=== PATIENT | female | born 1940 | race Caucasian/White ===

== ENCOUNTER → 2018-08-18 | Outpatient (CLI) | payer OTHER ==
[~2018-08-18] MED LIST: LEVO25TA54 PO; LOSA25TA16 PO; PANT40TA25 PO; PRAV20TA4 PO
== END | disposition home or self-care (01) ==
LOC: RAH 12:05
PROVIDERS: ATTEND Internal Medicine Critical Care Medicine
DX: M47.896 Other spondylosis, lumbar region (principal); M85.88 Other specified disorders of bone density and structure, other site
CPT/HCPCS: 72100

== ENCOUNTER 2018-08-28 16:02 | Observation (INO) | payer OTHER ==
[~2018-08-28] VITALS: Ht 154.9 cm; Wt 59.9 kg
[2018-08-28] MEDS ORDERED: FENTANYL CITRATE PF 50 MCG/1 ML 2ML VIAL ONE ×2 (16:57→19:01)
[2018-08-28 20:21] LABS: BASOPHILS % (AUTO) 0.9 % (0.0-5.0); EOSINOPHILS % (AUTO) 6.5 % (0.0-8.0); HEMATOCRIT 38.1 % (36-48); LYMPHOCYTES % (AUTO) 21.4 % (21.0-51.0); MEAN CORPUSCULAR HEMOGLOBIN 30.8 pg (27.0-33.0); MEAN CORPUSCULAR HGB CONC 33.4 g/dL (32.0-36.0); MEAN CORPUSCULAR VOLUME 92.3 fL (79-99); MONOCYTES % (AUTO) 9.1 % (3.0-13.0); NEUTROPHILS % (AUTO) 62.1 % (40.0-77.0); PLATELET COUNT (AUTO) 288 K/uL (130-400); RED BLOOD CELL COUNT(AUTO) 4.13 MIL/uL (4.00-5.50); RED CELL DISTRIBUTION WIDTH 13.6 % (11.0-15.5); WHITE BLOOD COUNT (AUTO) 6.3 K/uL (4.8-10.8)
[2018-08-28 20:31] LABS: CREATININE 0.8 mg/dL (0.5-1.5); POTASSIUM 3.8 mmol/L (3.5-5.1)
[2018-08-28] MEDS: SODIUM CHLORIDE 0.9% 1000ML 1,000 ML IV SCH (23:22)
[2018-08-28] MEDS ORDERED: ONDANSETRON HCL 4 MG/2 ML VIAL IV PRN (23:30)
[2018-08-28] MEDS ORDERED: LACTULOSE 20 GM/30 ML UDCUP PO PRN (23:30)
[2018-08-28] MEDS ORDERED: ACETAMINOPHEN 325 MG TAB PO PRN (23:30)
[2018-08-29] VITALS (7 sets, daily range): BP systolic 114–136; BP diastolic 59–77
[2018-08-29] MEDS ORDERED: TOPI50TA24 PO (02:07)
[2018-08-29] MEDS ORDERED: ATOR10TA69 PO (02:07)
[2018-08-29] MEDS ORDERED: ALEN70TA47 PO (02:07)
[2018-08-29] MEDS ORDERED: SERT50TA12 PO (02:07)
[2018-08-29] MEDS ORDERED: MELO-106 PO (02:07)
[2018-08-29] MEDS ORDERED: IMIP10TA5 PO (02:07)
[2018-08-29] MEDS: KETOROLAC TROMETHAMINE 15MG/ML IV PRN ×2 (03:21→11:21)
[2018-08-29 04:53] LABS: BASOPHILS % (AUTO) 0.8 % (0.0-5.0); EOSINOPHILS % (AUTO) 8.5 % (0.0-8.0); HEMATOCRIT 37.8 % (36-48); LYMPHOCYTES % (AUTO) 24.7 % (21.0-51.0); MEAN CORPUSCULAR HEMOGLOBIN 31.8 pg (27.0-33.0); MEAN CORPUSCULAR HGB CONC 34.5 g/dL (32.0-36.0); MEAN CORPUSCULAR VOLUME 92.3 fL (79-99); PLATELET COUNT (AUTO) 333 K/uL (130-400); RED CELL DISTRIBUTION WIDTH 13.4 % (11.0-15.5); WHITE BLOOD COUNT (AUTO) 5.4 K/uL (4.8-10.8)
[2018-08-29 05:05] LABS: ALBUMIN 3.3 g/dL (3.5-5.0); BILIRUBIN,TOTAL 0.3 mg/dL (0.2-1.0); CREATININE 0.8 mg/dL (0.5-1.5); POTASSIUM 4.3 mmol/L (3.5-5.1); TOTAL PROTEIN, SERUM 6.2 g/dL (6.0-8.3)
[2018-08-29 08:22] LABS: APPEARANCE,URINE Clear (CLEAR); BILIRUBIN,URINE Negative (NEGATIVE); COLOR,URINE Yellow (YELLOW); GLUCOSE, URINE (UA) Negative (NEGATIVE); KETONES,URINE Negative (NEGATIVE); LEUKOCYTE ESTERASE ,URINE Moderate (NEGATIVE); NITRATE,URINE Negative (NEGATIVE); OCCULT BLOOD,URINE Negative (NEGATIVE); PH,URINE 6.5 (5.0-8.0); PROTEIN,URINE Negative (NEGATIVE)
[2018-08-29 09:03] LABS: BACTERIA,URINE Rare /HPF (None Seen); RBC,URINE 0-1 /HPF (0-1)
[2018-08-29 09:04] LABS: SQUAMOUS EPITHELIAL CELL,UR Few /HPF (0-2)
[2018-08-29] MEDS: LACTULOSE 20 GM/30 ML UDCUP PO SCH ×2 (09:13→23:30)
[2018-08-29] MEDS: PANTOPRAZOLE SODIUM 40 MG TABLET.DR PO SCH (09:13)
[2018-08-29] MEDS: ENOXAPARIN SODIUM 30 MG/0.3 ML SQ SCH (09:15)
[2018-08-29] MEDS: SODIUM CHLORIDE 0.9% 1000ML 1,000 ML IV SCH ×2 (13:57→19:22)
[2018-08-29] MEDS ORDERED: CEFTRIAXONE SODIUM 2 GM VIAL IVP SCH (14:00)
[2018-08-29] MEDS: LEVOFLOXACIN 500 MG TABLET PO SCH (15:23)
[2018-08-29] MEDS: TOPIRAMATE 25 MG TABLET PO SCH (19:41)
[2018-08-29] MEDS ORDERED: AMITRIPTYLINE HCL 10 MG TABLET PO SCH (21:00)
[2018-08-30 03:00] VITALS: BP 115/63
[2018-08-30] MEDS: SODIUM CHLORIDE 0.9% 1000ML 1,000 ML IV SCH ×2 (05:22→11:19)
[2018-08-30 07:00] VITALS: BP 131/69
[2018-08-30] MEDS: LEVOFLOXACIN 500 MG TABLET PO SCH (08:40)
[2018-08-30] MEDS: PANTOPRAZOLE SODIUM 40 MG TABLET.DR PO SCH (08:41)
[2018-08-30] MEDS: ENOXAPARIN SODIUM 30 MG/0.3 ML SQ SCH (08:41)
[2018-08-30] MEDS: TOPIRAMATE 25 MG TABLET PO SCH (08:41)
[2018-08-30] MEDS ORDERED: ATORVASTATIN CALCIUM 10 MG TABLET PO SCH (09:00)
[2018-08-30] MEDS ORDERED: SERTRALINE HCL 50 MG TABLET PO SCH (09:00)
[2018-08-30] MEDS ORDERED: MELOXICAM 7.5 MG TABLET PO SCH (09:00)
[2018-08-30] MEDS: KETOROLAC TROMETHAMINE 15MG/ML IV PRN (11:18)
[2018-08-30 11:21] VITALS: BP 129/75
[2018-08-30] MEDS ORDERED: IBUP-2071 PO (14:20)
[2018-08-30] MEDS ORDERED: PANT40TA PO (14:20)
[2018-08-30] MEDS ORDERED: LEVO500T2 PO (14:20)
[2018-08-30 16:34] VITALS: BP 124/68
[2018-09-05] MEDS ORDERED: ALENDRONATE SODIUM 35 MG TAB PO SCH (09:00)
== END 2018-08-30 18:34 | disposition home or self-care (01) ==
LOC: EDH 16:02 → INTOOBSV 21:56 → EDHIP 21:56 → EEVIPCON 21:56 → 4AH 23:31
PROVIDERS: ADMIT Internal Medicine; ATTEND Internal Medicine
DX: M79.662 Pain in left lower leg (principal); M25.552 Pain in left hip; R07.89 Other chest pain; E03.9 Hypothyroidism, unspecified; E78.5 Hyperlipidemia, unspecified; I10 Essential (primary) hypertension; K21.9 Gastro-esophageal reflux disease without esophagitis; Z82.3 Family history of stroke; Z90.710 Acquired absence of both cervix and uterus; W01.190A Fall on same level from slipping, tripping and stumbling with subsequent striking against furniture, initial encounter; Y93.01 Activity, walking, marching and hiking; Y92.89 Other specified places as the place of occurrence of the external cause; Y99.8 Other external cause status
CPT/HCPCS: 36415 ×2; 71045; 72131; 72192; 73502; 73552; 73562; 80048; 80053; 81001; 85025 ×2; 87088; 93005; 96372 ×2; 96374; 96375; 96376 ×2; 97039; 97116; 97161; 99285; G0378 ×45; G8978; G8979; G8980; G8981; G8982; G8983; J1650 ×2; J1885 ×3; J2405; J3010 ×2

== ENCOUNTER 2019-08-05 12:32 | Inpatient (IN) | payer OTHER ==
[~2019-08-05] VITALS: Ht 157.5 cm; Wt 62.6 kg
[~2019-08-05 12:32] MED LIST changes: +ALEN70TA10 PO; +ATOR10TA69 PO; +IBUP-2071 PO; +IMIP10TA5 PO; -LEVO25TA54 PO; +LEVO500T2 PO; -LOSA25TA16 PO; +MELO-106 PO; +PANT40TA PO; -PANT40TA25 PO; -PRAV20TA4 PO; +SERT50TA12 PO; +TOPI50TA24 PO
[2019-08-05] MEDS ORDERED: ONDANSETRON HCL 4 MG/2 ML VIAL ONE (12:49)
[2019-08-05] MEDS ORDERED: SODIUM CHLORIDE 0.9% 1000ML 1,000 ML IV ONE ×3 (12:50→16:22)
[2019-08-05 13:00] LABS: APPEARANCE,URINE Clear (CLEAR); BILIRUBIN,URINE Negative (NEGATIVE); COLOR,URINE Yellow (YELLOW); GLUCOSE, URINE (UA) Negative (NEGATIVE); KETONES,URINE Negative (NEGATIVE); LEUKOCYTE ESTERASE ,URINE Negative (NEGATIVE); NITRATE,URINE Negative (NEGATIVE); OCCULT BLOOD,URINE Moderate (NEGATIVE); PROTEIN,URINE Negative (NEGATIVE); UROBILINOGEN,URINE 0.2 mg/dL (0.2-1.0)
[2019-08-05 13:00] LABS: BASOPHILS % (AUTO) 0.2 % (0.0-5.0); HEMATOCRIT 38.4 % (36-48); LYMPHOCYTES % (AUTO) 1.7 % (21.0-51.0); MEAN CORPUSCULAR HEMOGLOBIN 32.6 pg (27.0-33.0); MEAN CORPUSCULAR HGB CONC 34.4 g/dL (32.0-36.0); MEAN CORPUSCULAR VOLUME 94.6 fL (79-99); MONOCYTES % (AUTO) 3.5 % (3.0-13.0); NEUTROPHILS % (AUTO) 94.6 % (40.0-77.0); PLATELET COUNT (AUTO) 262 K/uL (130-400); RED BLOOD CELL COUNT(AUTO) 4.06 MIL/uL (4.00-5.50); RED CELL DISTRIBUTION WIDTH 14.4 % (11.0-15.5); WHITE BLOOD COUNT (AUTO) 10.3 K/uL (4.8-10.8)
[2019-08-05 13:11] LABS: INR 0.94 (0.85-1.15); PARTIAL THROMBOPLASTIN TIME 24.6 SEC (26.3-35.5); PROTHROMBIN TIME 9.9 SEC (9.6-11.6)
[2019-08-05 13:11] LABS: BACTERIA,URINE Few /HPF (None Seen); MUCUS,URINE Moderate LPF (None Seen); RBC,URINE 0-1 /HPF (0-1); SQUAMOUS EPITHELIAL CELL,UR 0-2 /HPF (0-2); WBC,URINE 0-1 /HPF (0-1)
[2019-08-05 13:14] LABS: CREATININE 0.8 mg/dL (0.5-1.5); POTASSIUM 3.1 mmol/L (3.5-5.1)
[2019-08-05 13:19] LABS: ALBUMIN 3.3 g/dL (3.5-5.0); BILIRUBIN,TOTAL 0.4 mg/dL (0.2-1.0); TOTAL PROTEIN, SERUM 6.4 g/dL (6.0-8.3)
[2019-08-05] MEDS ORDERED: POTASSIUM CHLORIDE 20 MEQ ERTAB PO ONE (13:44)
[2019-08-05] MEDS ORDERED: ACETAMINOPHEN EXTRA STRENGTH 500 MG TABLET ONE (13:45)
[2019-08-05] MEDS ORDERED: DiphenhydrAMINE HCL 50 MG/ML VIAL ONE (14:46)
[2019-08-05] MEDS ORDERED: KETOROLAC TROMETHAMINE 15MG/ML ONE (14:46)
[2019-08-05] MEDS: SODIUM CHLORIDE 0.9% 1000ML 1,000 ML IV SCH ×2 (15:44→20:10)
[2019-08-05] MEDS: LEVOFLOXACIN 500 MG/D5W 100 ML 100 ML IV SCH (15:45)
[2019-08-05] MEDS ORDERED: ONDANSETRON HCL 4 MG/2 ML VIAL IV PRN (15:45)
[2019-08-05] MEDS: METRONIDAZOLE 500MG/100ML BAG 100 ML IV SCH (15:45)
[2019-08-05] MEDS ORDERED: HYDRALAZINE HCL 20 MG/ML VIAL IV PRN (15:45)
[2019-08-05] MEDS ORDERED: ACETAMINOPHEN 325 MG TAB PO PRN (15:45)
[2019-08-05] MEDS ORDERED: METRONIDAZOLE 500MG/100ML BAG 100 ML ONE (16:21)
[2019-08-05 17:55] VITALS: BP 116/62
--- NOTE | 2019-08-05 17:59 | NUR ---
PT IN BED IN NO DISTRESS AAOX3. LUNGS CLEAR, DENIES NEEDS. 18G TO LT WRIST INTACT. FLUIDS STARTED.
[2019-08-05 19:04] LABS: MAGNESIUM 1.7 mg/dL (1.80-2.40); PHOSPHORUS 2.2 mg/dL (2.5-4.9)
[2019-08-05] MEDS ORDERED: FLU VACC QS2019-20 36MOS UP/PF 60 MCG/0.5 ML ML IM SCH (19:30)
[2019-08-05] MEDS ORDERED: PNEUMOCOCCAL VACCINE POLYVALENT 0.5 ML/VIAL [PPV] IM SCH (19:30)
[2019-08-05 20:00] VITALS: BP 113/57
[2019-08-05] MEDS: FAMOTIDINE/PF 20 MG/2 ML VIAL IV SCH (20:19)
[2019-08-05] MEDS: ACETAMINOPHEN 325 MG TAB PO PRN (20:20)
[2019-08-05] MEDS ORDERED: LIDOCAINE HCL-MPF 1% 2ML VIAL IV PRN (21:30)
[2019-08-05] MEDS ORDERED: POTASSIUM CHLORIDE 20MEQ/100ML 100 ML IV PRN (21:30)
[2019-08-05] MEDS ORDERED: POTASSIUM CHLORIDE 10% ELIXIR 20 MEQ/15 ML UDCUP PO PRN (21:30)
[2019-08-06] VITALS: BP 111/42
[2019-08-06] MEDS: METRONIDAZOLE 500MG/100ML BAG 100 ML IV SCH ×4 (00:33→23:40)
[2019-08-06] MEDS: POTASSIUM CHLORIDE 20 MEQ ERTAB PO PRN ×3 (01:12→06:49)
[2019-08-06 04:00] VITALS: BP 115/62
[2019-08-06] MEDS: SODIUM CHLORIDE 0.9% 1000ML 1,000 ML IV SCH ×3 (04:07→22:01)
[2019-08-06] MEDS ORDERED: MAGNESIUM 2GM PREMIX 50ML 50 ML IV PRN ×2 (05:00→15:30)
[2019-08-06] MEDS: ACETAMINOPHEN 325 MG TAB PO PRN (05:41)
[2019-08-06 06:26] LABS: BASOPHILS % (AUTO) 0.2 % (0.0-5.0); EOSINOPHILS % (AUTO) 1.2 % (0.0-8.0); HEMATOCRIT 32.5 % (36-48); MEAN CORPUSCULAR HEMOGLOBIN 33.2 pg (27.0-33.0); MEAN CORPUSCULAR HGB CONC 34.3 g/dL (32.0-36.0); MEAN CORPUSCULAR VOLUME 96.6 fL (79-99); NEUTROPHILS % (AUTO) 72.6 % (40.0-77.0); PLATELET COUNT (AUTO) 190 K/uL (130-400); RED BLOOD CELL COUNT(AUTO) 3.37 MIL/uL (4.00-5.50); RED CELL DISTRIBUTION WIDTH 14.3 % (11.0-15.5); WHITE BLOOD COUNT (AUTO) 5.7 K/uL (4.8-10.8)
[2019-08-06 06:32] LABS: CREATININE 0.6 mg/dL (0.5-1.5); POTASSIUM 3.5 mmol/L (3.5-5.1)
[2019-08-06 08:00] VITALS: BP 119/55
[2019-08-06] MEDS: FAMOTIDINE/PF 20 MG/2 ML VIAL IV SCH ×2 (08:41→21:10)
[2019-08-06] MEDS: ENOXAPARIN SODIUM 30 MG/0.3 ML SQ SCH (08:42)
[2019-08-06 11:21] VITALS: BP 105/66
--- NOTE | 2019-08-06 11:53 | NUR ---
D/C PLAN CM spoke to pt regarding d/c planning. Pt is ind[place] and lives with spouse. States spouse can assist in care if needed. Denies having any home health or DME. Plan to home. No needs verbalized or identified. CM to f/u. Addendum: 08/06/19 at 1154 by OSMAR FERREIRA CM Amended: Links added.
[2019-08-06] MEDS ORDERED: TOPI50TA24 PO (12:39)
[2019-08-06] MEDS ORDERED: LEVO75 PO (12:39)
--- NOTE | 2019-08-06 13:09 | NUR ---
Nutrition intervention: Nutrition notification for hypovolemia. Pt reports she continues with N/D, no emesis. Pt attempting to eat however states has trouble chewing, requesting mechanical soft foods. Spoke to pt about increased fluids, pt agrees. Recommendations: Modify diet therapy with mechanical soft diet. Offer fluids at all meals. Offer BRAT options to assist reduce diarrhea symptoms. Addendum: 08/06/19 at [address] RD Amended: Links added.
[2019-08-06] MEDS ORDERED: IBUPROFEN 200 MG TAB PO SCH (15:15)
[2019-08-06] MEDS ORDERED: IBUPROFEN 200 MG TAB PO PRN (15:15)
[2019-08-06] MEDS ORDERED: LACTOBACILLUS RHAMNOSUS GG 1 EACH CAP.SPRINK PO SCH (15:15)
[2019-08-06 16:00] VITALS: BP 129/71
[2019-08-06] MEDS: LEVOFLOXACIN 500 MG/D5W 100 ML 100 ML IV SCH (16:51)
[2019-08-06 20:10] VITALS: BP 140/62
[2019-08-06] MEDS: TOPIRAMATE 25 MG TABLET PO SCH (21:10)
[2019-08-06] MEDS: LACTOBACILLUS RHAMNOSUS GG 1 EACH CAP.SPRINK PO SCH (21:10)
[2019-08-07] VITALS (7 sets, daily range): BP systolic 119–139; BP diastolic 54–75
[2019-08-07] MEDS: SODIUM CHLORIDE 0.9% 1000ML 1,000 ML IV SCH ×2 (05:05→17:25)
[2019-08-07 06:43] LABS: BASOPHILS % (AUTO) 0.5 % (0.0-5.0); EOSINOPHILS % (AUTO) 4.5 % (0.0-8.0); HEMATOCRIT 32.7 % (36-48); LYMPHOCYTES % (AUTO) 19.8 % (21.0-51.0); MEAN CORPUSCULAR HEMOGLOBIN 32.7 pg (27.0-33.0); MEAN CORPUSCULAR HGB CONC 34.5 g/dL (32.0-36.0); MEAN CORPUSCULAR VOLUME 94.9 fL (79-99); NEUTROPHILS % (AUTO) 61.2 % (40.0-77.0); PLATELET COUNT (AUTO) 218 K/uL (130-400); RED BLOOD CELL COUNT(AUTO) 3.45 MIL/uL (4.00-5.50); RED CELL DISTRIBUTION WIDTH 14.3 % (11.0-15.5); WHITE BLOOD COUNT (AUTO) 5.4 K/uL (4.8-10.8)
[2019-08-07 06:58] LABS: CREATININE 0.6 mg/dL (0.5-1.5); POTASSIUM 3.9 mmol/L (3.5-5.1)
[2019-08-07] MEDS: LACTOBACILLUS RHAMNOSUS GG 1 EACH CAP.SPRINK PO SCH ×3 (08:25→20:49)
[2019-08-07] MEDS: LEVOTHYROXINE 75 MCG TABLET PO SCH (08:25)
[2019-08-07] MEDS: TOPIRAMATE 25 MG TABLET PO SCH ×2 (08:25→20:48)
[2019-08-07] MEDS: FAMOTIDINE/PF 20 MG/2 ML VIAL IV SCH ×2 (08:26→20:48)
[2019-08-07] MEDS: METRONIDAZOLE 500MG/100ML BAG 100 ML IV SCH ×3 (08:26→23:48)
[2019-08-07] MEDS: ENOXAPARIN SODIUM 30 MG/0.3 ML SQ SCH (08:26)
[2019-08-07] MEDS ORDERED: LOPERAMIDE HCL 2 MG CAP PO SCH (12:00)
--- NOTE | 2019-08-07 12:19 | NUR ---
DR CRUZ CALLED BACK. AWARE OF CONSULT. NEW ORDERS RECEIVED AND CARRIED OUT. ORDERED CT ABD/PELVIS AND CLEAR LIQUID DIET FOR NOW.
[2019-08-07] MEDS ORDERED: DIATR MEGLU/DIATRIZOATE SODIUM 30 ML BOTTLE ONE (14:40)
[2019-08-07] MEDS ORDERED: IOHEXOL-350 75 ML VIAL IV ONE (16:50)
[2019-08-07] MEDS: LEVOFLOXACIN 500 MG/D5W 100 ML 100 ML IV SCH (17:25)
[2019-08-08] MEDS: SODIUM CHLORIDE 0.9% 1000ML 1,000 ML IV SCH ×2 (01:55→18:45)
[2019-08-08 03:30] VITALS: BP 134/70
[2019-08-08 05:00] LABS: BASOPHILS % (AUTO) 0.3 % (0.0-5.0); EOSINOPHILS % (AUTO) 4.2 % (0.0-8.0); HEMATOCRIT 34.3 % (36-48); MEAN CORPUSCULAR HEMOGLOBIN 32.4 pg (27.0-33.0); MEAN CORPUSCULAR HGB CONC 34.1 g/dL (32.0-36.0); MEAN CORPUSCULAR VOLUME 94.9 fL (79-99); MONOCYTES % (AUTO) 13.5 % (3.0-13.0); PLATELET COUNT (AUTO) 230 K/uL (130-400); RED BLOOD CELL COUNT(AUTO) 3.62 MIL/uL (4.00-5.50); RED CELL DISTRIBUTION WIDTH 14.4 % (11.0-15.5); WHITE BLOOD COUNT (AUTO) 5.4 K/uL (4.8-10.8)
[2019-08-08 05:07] LABS: CREATININE 0.6 mg/dL (0.5-1.5); POTASSIUM 3.2 mmol/L (3.5-5.1)
[2019-08-08] MEDS: POTASSIUM CHLORIDE 20 MEQ ERTAB PO PRN ×3 (05:12→13:38)
[2019-08-08] MEDS: LEVOTHYROXINE 75 MCG TABLET PO SCH (06:42)
[2019-08-08] MEDS: METRONIDAZOLE 500MG/100ML BAG 100 ML IV SCH ×3 (06:42→23:10)
[2019-08-08 08:00] VITALS: BP 126/73
[2019-08-08] MEDS: LACTOBACILLUS RHAMNOSUS GG 1 EACH CAP.SPRINK PO SCH ×3 (09:05→22:28)
[2019-08-08] MEDS: FAMOTIDINE/PF 20 MG/2 ML VIAL IV SCH ×2 (09:05→22:29)
[2019-08-08] MEDS: ENOXAPARIN SODIUM 30 MG/0.3 ML SQ SCH (09:05)
[2019-08-08] MEDS: TOPIRAMATE 25 MG TABLET PO SCH ×2 (09:06→22:29)
[2019-08-08 12:00] VITALS: BP 110/60
[2019-08-08] MEDS ORDERED: LOPERAMIDE 1 MG/7.5 ML UDCUP PO SCH (14:30)
[2019-08-08] MEDS ORDERED: NS-20 MEQ KCL 1000ML 1,000 ML IV SCH (14:30)
[2019-08-08 16:00] VITALS: BP 125/68
[2019-08-08] MEDS: LEVOFLOXACIN 500 MG/D5W 100 ML 100 ML IV SCH (16:53)
[2019-08-08 20:00] VITALS: BP 123/64
[2019-08-08 23:30] VITALS: BP 136/60
[2019-08-09] VITALS (7 sets, daily range): BP systolic 122–136; BP diastolic 63–77
[2019-08-09 05:15] LABS: BASOPHILS % (AUTO) 0.6 % (0.0-5.0); EOSINOPHILS % (AUTO) 6.1 % (0.0-8.0); HEMATOCRIT 36.2 % (36-48); MEAN CORPUSCULAR HEMOGLOBIN 32.5 pg (27.0-33.0); MEAN CORPUSCULAR HGB CONC 34.5 g/dL (32.0-36.0); MONOCYTES % (AUTO) 13.6 % (3.0-13.0); NEUTROPHILS % (AUTO) 49.7 % (40.0-77.0); PLATELET COUNT (AUTO) 277 K/uL (130-400); RED BLOOD CELL COUNT(AUTO) 3.85 MIL/uL (4.00-5.50); RED CELL DISTRIBUTION WIDTH 14.5 % (11.0-15.5); WHITE BLOOD COUNT (AUTO) 5.2 K/uL (4.8-10.8)
[2019-08-09 05:21] LABS: CREATININE 0.7 mg/dL (0.5-1.5); POTASSIUM 3.7 mmol/L (3.5-5.1)
[2019-08-09] MEDS: SODIUM CHLORIDE 0.9% 1000ML 1,000 ML IV SCH ×3 (05:34→23:50)
[2019-08-09] MEDS: POTASSIUM CHLORIDE 20 MEQ ERTAB PO PRN ×2 (05:34→09:22)
[2019-08-09] MEDS: LEVOTHYROXINE 75 MCG TABLET PO SCH (05:35)
[2019-08-09] MEDS: METRONIDAZOLE 500MG/100ML BAG 100 ML IV SCH ×3 (08:14→23:42)
[2019-08-09] MEDS: TOPIRAMATE 25 MG TABLET PO SCH ×2 (08:14→20:59)
[2019-08-09] MEDS: LACTOBACILLUS RHAMNOSUS GG 1 EACH CAP.SPRINK PO SCH ×3 (08:14→20:58)
[2019-08-09] MEDS: FAMOTIDINE/PF 20 MG/2 ML VIAL IV SCH ×2 (08:14→20:59)
[2019-08-09] MEDS: ENOXAPARIN SODIUM 30 MG/0.3 ML SQ SCH (08:15)
[2019-08-09] MEDS ORDERED: FLU VACC QS2019-20 36MOS UP/PF 60 MCG/0.5 ML ML IM SCH (11:30)
--- NOTE | 2019-08-09 12:59 | NUR ---
FLU VACCINE ADMINISTERED FLU VACCINE, LOT # [id number]
--- NOTE | 2019-08-09 15:48 | NUR ---
RD NOTIFICATION/ FOLLOW UP DIET: GI SOFT/ BLAND. LBM: 08/09. PO INTAKE 75-100% AND HAS GOOD APPETITE PER PT. PT ADMITS TO STILL HAVING DIARRHEA, HOWEVER IS IMPROVING. PT TOLERATING DIET WELL. RD RECOMMENDS CONTINUE CURRENT DIET, OFFER BRAT DIET CONTAINING FOODS TO HELP WITH DIARRHEA. CONSULT GI DUE TO POSITIVE STOOL OCCULT. RD WILL CONTINUE TO MONITOR AND FOLLOW UP NEEDED. Addendum: 08/09/19 at [address] RD Amended: Links added.
[2019-08-09] MEDS: LEVOFLOXACIN 500 MG/D5W 100 ML 100 ML IV SCH (15:50)
[2019-08-09] MEDS: ACETAMINOPHEN 325 MG TAB PO PRN (18:13)
[2019-08-10 03:33] VITALS: BP 123/60
[2019-08-10] MEDS: LEVOTHYROXINE 75 MCG TABLET PO SCH (07:10)
[2019-08-10] MEDS: METRONIDAZOLE 500MG/100ML BAG 100 ML IV SCH (07:10)
[2019-08-10 08:00] VITALS: BP 130/56
[2019-08-10] MEDS: LACTOBACILLUS RHAMNOSUS GG 1 EACH CAP.SPRINK PO SCH (08:30)
[2019-08-10] MEDS: ACETAMINOPHEN 325 MG TAB PO PRN (08:30)
[2019-08-10] MEDS: FAMOTIDINE/PF 20 MG/2 ML VIAL IV SCH (08:30)
[2019-08-10] MEDS: TOPIRAMATE 25 MG TABLET PO SCH (08:31)
[2019-08-10] MEDS: ENOXAPARIN SODIUM 30 MG/0.3 ML SQ SCH (08:31)
[2019-08-10] MEDS: SODIUM CHLORIDE 0.9% 1000ML 1,000 ML IV SCH (10:48)
[2019-08-10] MEDS ORDERED: PHARMACY COMMUNICATION MISC ONE (11:45)
[2019-08-10 11:54] VITALS: BP 121/58
--- NOTE | 2019-08-10 14:47 | NUR ---
PC D/C Plan. Pt d/c at this time, D/c instruction provided in presence of grandchild, pt and family member verbalized understanding of d/c instruction, pt to follow up with PCP and GI, appointment scheduled for pt, PIV taken out safely, no complication noted. Pt safely taken down in w/c by [employer]UCATION TEACHER. All questions and concerns addressed and answered.
[2019-08-10] MEDS ORDERED: LEVOFLOXACIN 500 MG TABLET PO SCH (15:45)
[2019-08-10] MEDS ORDERED: METRONIDAZOLE 500 MG TABLET PO SCH (15:45)
== END 2019-08-10 14:35 | disposition home or self-care (01) | DRG 392 ==
LOC: EDH 12:32 → EDHIP 15:44 → OBSVTOIN 15:44 → 3DH 17:55
PROVIDERS: ADMIT Internal Medicine; ATTEND Internal Medicine
PROC: 3E0234Z Introduction of Serum, Toxoid and Vaccine into Muscle, Percutaneous Approach (ICD-10-PCS; 2019-08-05)
PROC: 3E02340 Introduction of Influenza Vaccine into Muscle, Percutaneous Approach (ICD-10-PCS; 2019-08-05)
PROC: 3E02340 Introduction of Influenza Vaccine into Muscle, Percutaneous Approach (ICD-10-PCS; principal; 2019-08-09)
DX: K52.9 Noninfective gastroenteritis and colitis, unspecified (principal); E87.1 Hypo-osmolality and hyponatremia; E87.6 Hypokalemia; E83.42 Hypomagnesemia; E86.0 Dehydration; E03.9 Hypothyroidism, unspecified; I10 Essential (primary) hypertension; K21.9 Gastro-esophageal reflux disease without esophagitis; G43.909 Migraine, unspecified, not intractable, without status migrainosus; Z80.3 Family history of malignant neoplasm of breast; Z23 Encounter for immunization; Z82.0 Family history of epilepsy and other diseases of the nervous system; Z82.3 Family history of stroke; Z82.49 Family history of ischemic heart disease and other diseases of the circulatory system; Z82.5 Family history of asthma and other chronic lower respiratory diseases; Z90.710 Acquired absence of both cervix and uterus; Z90.49 Acquired absence of other specified parts of digestive tract; Z88.1 Allergy status to other antibiotic agents; Z88.5 Allergy status to narcotic agent
CPT/HCPCS: 36415; 70450; 74177; 80048; 80053; 81001; 82150; 82270; 82550; 83605; 83630; 83690; 83735; 84100; 84145; 84484; 85025; 85610; 85730; 87046; 87324; 87507; 87804; 90732; 93005; 97039; G0008; G0378; J1200; J1650; J1885; J1956; J2405; J3475; J3480; J3490; J7030; Q2035; Q9963; Q9967